=== PATIENT | male | born 1980 | race Caucasian/White ===

== ENCOUNTER 2024-07-25 00:49 | Emergency (ER) | payer MEDICAID ==
[~2024-07-25] VITALS: Ht 167.6 cm; Wt 86.2 kg
[2024-07-25 00:51] VITALS: BP 115/68; PULSE 84; RESP 18; TEMP 97.3; O2SAT 98
[2024-07-25 01:05] VITALS: TEMP 97.3
[2024-07-25 05:57] VITALS: BP 133/68; PULSE 81; RESP 16; O2SAT 98
== END 2024-07-25 07:02 | disposition home or self-care (01) ==
LOC: MED 00:49
DX: F10.129 Alcohol abuse with intoxication, unspecified (principal); Y90.9 Presence of alcohol in blood, level not specified
CPT/HCPCS: 99285